=== PATIENT | female | born 1975 | race Caucasian/White ===

== ENCOUNTER 2016-10-03 08:00 | Day surgery (SDC) | payer BC ==
[~2016-10-03] VITALS: Ht 177.8 cm; Wt 124.2 kg
--- NOTE | ~2016-10-03 | OR ---
PATIENT'S NAME: AURORA LR [facility] AGE: 41 Y [address] ROOM: [address] [address] LOC[place]: [facility] [place] ADMIT DATE: 10/03/2016 OR/Procedure Report DISCHARGE DATE: FAMILY PHYSICIAN: PHYSICIAN, NO ATTENDING PHYSICIAN: Armand Jerome SURGEON: Armand Jerome MD [employer] DEVELOPMENT MANAGER: DATE OF PROCEDURE: 10/03/2016 PREOPERATIVE DIAGNOSES: Bilateral chronic maxillary sinusitis, bilateral chronic ethmoid sinusitis, refractory to medical management. POSTOPERATIVE DIAGNOSES: Bilateral chronic maxillary sinusitis, bilateral chronic ethmoid sinusitis, refractory to medical management. OPERATIONS PERFORMED: 1. Bilateral intranasal endoscopic ethmoidectomies-total. 2. Bilateral maxillary antrostomies-endoscopic. INDICATIONS: Aurora Lr is a 41-year-old female who presented to [place] evaluation of chronic sinusitis. The patient's exam and CT scan demonstrated the above. The operative indications, potential risks and complications, and options were discussed with the patient. She wished to proceed with surgery. Intraoperatively, decision was made not to cauterize the inferior turbinates as, at this point, they were not swollen. The patient also did not need a septoplasty as I was able to perform the endoscopic sinus surgery without septoplasty needed. OPERATION IN DETAIL: The patient was placed in the supine position and underwent general anesthesia without incident. The patient was prepped and draped in the normal sterile fashion. CT scan was reviewed prior to surgery. The nasal endoscope was introduced in the left nasal cavity. The lateral nasal wall was infiltrated with 3 mL of 1% lidocaine with 1:100,000 epinephrine. After approximately 5 minutes, an uncinectomy was then performed identifying the natural maxillary antrostomy site. This was opened widely. The 4.0 shaver device was used to perform the ethmoidectomy. The posterior ethmoid air cell, which was previously noted on CT scan to be significantly infected, was at this point clear. Care was taken to protect the lamina papyracea and fovea ethmoidalis. Afrin packs were placed on the left side. The right side of the nose was examined in a similar fashion. The scope was introduced in the right nasal cavity. The lateral nasal wall was infiltrated with 3 mL of 1% lidocaine with 1:100,000 epinephrine. After approximately 5 minutes, an uncinectomy was then performed identifying the natural maxillary antrostomy site. This was opened widely. Total ethmoidectomy was then performed in the usual fashion with a shaver device. Care was taken to PATIENT'S NAME: AURORA LR [facility] AGE: 41 Y [address] ROOM: [place] [address] LOCATION: [facility] [place] ADMIT DATE: 10/03/2016 OR/Procedure Report DISCHARGE DATE: FAMILY PHYSICIAN: PHYSICIAN, NO ATTENDING PHYSICIAN: Armand Jerome protect the lamina papyracea and fovea ethmoidalis. Bleeding was minimal. The patient tolerated the procedure well. Afrin packs were placed on the right side, and on both sides, they were removed. The nasopharynx was suctioned clear of any blood. At this point, no significant bleeding was noted. The ethmoid cavities bilaterally were covered with mupirocin ointment. Telfa splints were used to catch any significant blood upon extubation. The oropharynx was suctioned clear by our anesthesia provider prior to extubation. The patient tolerated the procedure well and was transferred to the recovery room in stable condition. The eyes were checked and noted to be within normal limits at the end of the procedure. MD SINDY FOXO/modl /[id number] d: 10/03/16 1623 t: 10/17/16 0751, OPERATIVE SUMMARY
[~2016-10-03 08:00] MED LIST: CELEXA40 MG PO; KLONOPIN0.5 MG PO; LEVOTHROID (S200 MCG PO; OMEPRAZOLE40 MG PO; [UNRECOGNIZED DRUG - OTHER] PO
--- NOTE | 2016-10-03 16:14 | NUR ---
Significant Event: Patient arrived from PACU at 1400, septoplasty for Dr. Jerome. post op vitals stable. on room air, iv saline locked. Nasal packs pulled, drip pad in place. tolerated clear liquid, diet advanced, ambulated with supervision and tolerated well. No pain at this time. Plan is DC to [place] tomorrow. Follow up: finish post op vitals
--- NOTE | 2016-10-03 19:33 | NUR ---
I HAVE REVIEWED AND AGREE WITH THE STUDENT CHARTING OF RUSTY SCOTT RN
--- NOTE | 2016-10-04 05:18 | NUR ---
ALERT AND ORIENTATED. AMBULATES AT [facility]. VS WNL. ON RA IV SL TO L WRIST. SLEEP APENA ELEVATE HOB TO 45 DEGREES. NO DRAINAGE FROM NARES NASAL PACKING REMOVED. PERCOCET 2 TABS GIVEN AT 2355. NEEDS TO HAVE TYLENOL 3 GIVEN BEFORE DISCHARGE. PLAN IS TO DISCHARGE THIS AM.
[2016-10-04] MEDS ORDERED: PERCOCET 5-3251 EACH PO (07:51)
--- NOTE | 2016-10-04 08:30 | NUR ---
D: Orders received for the patient to be discharged to home today. I: Dismissal instructions were prepared and reviewed with the patient and her virtually. The following information was discussed including [employer] teaching sheets provided: Discharge instructions for nasal surgery, discharge instructions for sinusitis, sinsus surgery, percocet and Preventing DVT. Reviewed follow up appointment and new prescription she will need to take to her pharmacy. R: The patient and her both verbalized understanding of the dismissal education at the time of teaching with no further questions. P: The above information was shared with the primary nurse and the charge nurse that the patient's dismissal education was completed. The patient is ready for discharge to the front door via wheel chair by nursing staff.
--- NOTE | 2016-10-04 08:55 | NUR ---
SHIFT NOTE/DISCHARGE: Pt. pain controlled with percocet. Last given at 0659. Refused Tyl #3 prior to d/c, stating pain was controlled. VSS, on RA. IV to L)wrist, patent. D/C'd prior to discharge. Packing was already pulled, no drip crowe in place. Patient had scant amount of bloody discharge from L)nare this AM. Ate 100% breakfast. Ambulated in room independently. Family at bedside. Reviewed d/c instructions with virtual nurse, no questions or concerns. Taken to front door by aide at 0855 and driven home by family.
== END 2016-10-04 08:50 | disposition disaster alternative care site (69) ==
LOC: GMSU 08:00 → GSDC 08:00 → GMSU 14:00 → GSDC 10-04 08:50
PROC: 09BV4ZZ Excision of Left Ethmoid Sinus, Percutaneous Endoscopic Approach (ICD-10-PCS; principal; 2016-10-03)
PROC: 09BU4ZZ Excision of Right Ethmoid Sinus, Percutaneous Endoscopic Approach (ICD-10-PCS; 2016-10-03)
PROC: 099R4ZZ Drainage of Left Maxillary Sinus, Percutaneous Endoscopic Approach (ICD-10-PCS; 2016-10-03)
PROC: 099Q4ZZ Drainage of Right Maxillary Sinus, Percutaneous Endoscopic Approach (ICD-10-PCS; 2016-10-03)
DX: J32.2 Chronic ethmoidal sinusitis (principal); J32.0 Chronic maxillary sinusitis; K21.9 Gastro-esophageal reflux disease without esophagitis; G47.33 Obstructive sleep apnea (adult) (pediatric); E03.9 Hypothyroidism, unspecified; E89.0 Postprocedural hypothyroidism; Z98.890 Other specified postprocedural states; Z79.899 Other long term (current) drug therapy
CPT/HCPCS: A9270; J1100; J2405; J3010; J7120